=== PATIENT | female | born 1955 | race Caucasian/White ===

== ENCOUNTER 2017-09-15 05:34 | Emergency (ER) | payer BC, OTHER ==
[~2017-09-15] VITALS: Ht 165.1 cm; Wt 74.8 kg
[~2017-09-15 05:34] MED LIST: ALLEGRA ALLERG180 MG PO; ARMOUR THYROID60 MG PO; AZITHROMYCIN250 MG PO; BIOTIN1 MG PO; CALCIUM 600 +1 EAC4 PO; CYCLOBENZAPRINE10 MG PO; ESTRADIOL1 MG PO; GABAPENTIN300 MG PO; IBUPROFEN800 MG PO; LOVASTATIN40 MG PO; MEDROXYPROGESTE10 MG PO; NADOLOL40 MG PO; NAPROSYN500 MG PO; OMEPRAZOLE20 MG PO; OXYCODONE-ACET1 EAC1 PO; PREDNISONE20 MG PO; PSEUDOEPHEDRINE60 MG PO; SERTRALINE HCL100 MG PO; SUMATRIPTAN SUC50 MG PO; VITAMIN B-2100 MG PO; VITAMIN E1000 UNI1 PO
[2017-09-15] MEDS ORDERED: AUGMENTIN 875-1 EACH PO (06:07)
== END 2017-09-15 06:23 | disposition home or self-care (01) ==
LOC: ED 05:34
DX: J02.9 Acute pharyngitis, unspecified (principal); J01.00 Acute maxillary sinusitis, unspecified; K21.9 Gastro-esophageal reflux disease without esophagitis; F32.9 Major depressive disorder, single episode, unspecified; Z87.891 Personal history of nicotine dependence; Z90.49 Acquired absence of other specified parts of digestive tract; Z79.899 Other long term (current) drug therapy
CPT/HCPCS: 87081; 87880; 99283

== ENCOUNTER 2017-10-05 11:01 | Inpatient (IN) | payer BC ==
[~2017-10-05] VITALS: Ht 165.1 cm; Wt 71.5 kg
[~2017-10-05 11:01] MED LIST changes: +AUGMENTIN 875-1 EACH PO
--- NOTE | 2017-10-25 09:16 | NUR ---
10/25/17 0916 Niesha Wiggins TO PACU. ORAL AIRWAY IN PLACE.
--- NOTE | 2017-10-25 10:13 | NUR ---
PATIENT TX TO ROOM 116 FROM PACU. PATIENT IS ALERT AND ORIENTED AND STATES THAT PAIN AT THIS TIME IS AT A 6/10. PATIENT CAME TO MED SURG ON 2L OF OXYGEN PER NC. WATER PROVIDED FOR THE PATIENT AND SCD'S PLACED ON HER AT THIS TIME. GARRIDO INTACT WITH MINIMAL CLEAR YELLOW URINE PRESENT.
--- NOTE | 2017-10-25 10:41 | NUR ---
PATIENT C/O 6/10 ABDOMINAL PAIN, PATIENT GIVEN 4MG OF IV MORPHINE AT THIS TIME, LR HUNG PER THE IV POLE AT 125MLS /HR AT THIS TIME.
--- NOTE | 2017-10-25 11:14 | NUR ---
PAIN LEVEL DOWN TO A 3/10 AT THIS TIME, PATIENT SITTING UP IN BED VISITING WITH HER AT THIS TIME. DENIES ANY NAUSEA OR OTHER NEEDS AT THIS TIME
--- NOTE | 2017-10-25 12:24 | NUR ---
PATIENT TOLERATING CLEAR LIQUIDS WITH NO C/O NAUSEA OR VOMITING. PAIN IS STILL TOLERABLE AT THIS TIME.
--- NOTE | 2017-10-25 12:51 | NUR ---
PATIENT IS RESTING ON HER LEFT SIDE, PAIN LEVEL AT THIS TIME IS AT A 5/10, CRACKERS AND 1 PERCOCET PO GIVEN AT THIS TIME. PATIENT WATER FILLED UP FOR HER AT THIS TIME. FLU VACCINE FORM FILLED OUT FOR HER AT THIS TIME.
--- NOTE | 2017-10-25 12:52 | OR ---
[facility] [address] [place], [place] [address] Signed DATE OF OPERATION: 10/25/2017 SURGEON: López Vazquez MD PREOPERATIVE DIAGNOSIS: Uterovaginal prolapse complete. POSTOPERATIVE DIAGNOSIS: Uterovaginal prolapse complete. PROCEDURE: Vaginal hysterectomy with left salpingectomy, anterior and posterior repair. OYSTER GRADER: Vladimir Bullock. ANESTHESIA: General. ESTIMATED BLOOD LOSS: 75 mL. SPECIMEN: Uterus with cervix and left fallopian tube. DRAINS: Ruth to bladder. PACKING: Premarin soaked gauze in vagina. FINDINGS: Normal appearing cervix, small uterus with grade 3 prolapse. No adhesions or fibroids noted. There is a grade 2 rectocele with thinning rectovaginal septum midway up into the vagina, but good support of the perineum and good sphincter. This was grade 3 cystocele. With the urethra of the early well-supported and the left ovary was very small. Difficult to bring down into the operating field. Early well supported. The left tube is normal. There are no adhesions or masses. The right ovary was small and again difficult to visualize unable to bring down in the operating field. The right tube was also appeared normal but was again elevated and difficult to bring down into the field. Electronically Signed By: LÓPEZ VAZQUEZ MD 10/25/17 1252 PATIENT NAME: LEATHA VAZQUEZ OPERATIVE REPORT DATE OF : 53 PHYSICIAN: LÓPEZ VAZQUEZ MD REPORT #: [id number] REPORT IS CONFIDENTIAL AND NOT TO BE RELEASED WITHOUT AUTHORIZATION [facility] [address], [place] [address] Signed No pelvic masses were identified. DESCRIPTION OF PROCEDURE: The patient was brought in to the operating room, placed supine position. After adequate general anesthesia was obtained, placed in the dorsal lithotomy position, prepped and draped in usual sterile fashion. A weighted speculum was placed in the vagina and the cervix grasped with 2 single-tooth tenacula. A Ruth catheter was placed in the bladder. A posterior colpotomy was made with a curved scissors entering the posterior cul-de-sac. Finger palpation revealed no masses within the cul-de-sac. So a [place] speculum was replaced the weighted speculum. The scalpel was used to circumscribe the vaginal mucosa and close to the cervix and then the uterosacral ligaments on each side clamped with curved Stan clamps, cut with scissors and each side stick-tied with O Vicryl suture. The anterior vaginal mucosa was bluntly pushed back along the uterus until the anterior cul-de-sac peritoneum could be identified. This was then opened with scissors and finger palpation showed no masses within the anterior cul-de-sac. The Katie retractor was inserted into the anterior cul-de-sac to elevate the bladder out of the way. Curved Stan clamps were then used to clamp either side of the uterus and clamping the broad ligament and uterine vessels each side. The pedicle on each side was clamped with curved Stan clamp, cut with scissors and stick-tied with 0 Vicryl suture. The remaining upper pedicle incorporating the round ligament, the utero-ovarian ligament, and the fallopian tube were clamped with 2 curved Stan clamps on each side. This pedicle was cut on each side, removing the uterus and each pedicle was free tied, then stick-tied with O Vicryl suture. Both suture lines were carefully examined. There was a small amount of bleeding on the left side, which was controlled with figure-of-8 stitch of 0 Vicryl suture. The left fallopian tube was then carefully grasped with a Goldie clamp, pulled down gently, and curved Stan clamp placed across the fallopian tube. The tube was removed using scissors and the pedicle free tied with 0 Vicryl suture. This pedicle was observed and noted to have good hemostasis. On the right side, the tube was identified, gently grasped, but would not come down in the operating field. It was decided both upper pedicles appear normal, the tube unable to be brought down, would not be removed. Again, the sponge stick was placed in the opening. Both sides were carefully examined and noted to have good hemostasis throughout. A sponge stick was removed. Pursestring stitch of 2-0 Vicryl suture was used to close the anterior peritoneum between the upper pedicles and the posterior peritoneum between the lower pedicles. A finger was placed in the closure to make sure no bowel stuck within the closure and the peritoneum tied closed. Two upper pedicles were tied together for further support. The vaginal mucosa was then closed using running locking stitch of 0 Vicryl suture between the 2 lower uterosacral ligament pedicles. The vagina was inspected and good hemostasis noted. Cystocele was then identified. Allis clamp was placed on the bladder just below the urethrovesical junction and the 2nd one in the midline just above the previous hysterectomy incision. The mucosa was then injected along the midline with 1% lidocaine with epinephrine to help separate the vaginal mucosa Electronically Signed By: LÓPEZ VAZQUEZ MD 10/25/17 1252 PATIENT NAME: LEATHA VAZQUEZ OPERATIVE REPORT DATE OF : 53 PHYSICIAN: LÓPEZ VAZQUEZ MD REPORT #: [id number] REPORT IS CONFIDENTIAL AND NOT TO BE RELEASED WITHOUT AUTHORIZATION [facility] [address], [place] [address] Signed from the bladder and the scalpel used to make a vertical incision along the midline between the two. Allis clamps and Metzenbaum scissors were then used to separate the vaginal mucosa from the paravesical tissue. Blunt dissection was also used to separate the tissue. With the cystocele identified, pursestring stitch of 2-0 Vicryl. Suture was placed elevating the cystocele. After the 1st pursestring stitch the area was observed and noted to be too tight for 2nd pursestring stitch and good hemostasis was noted. So the vaginal mucosa was trimmed and a running stitch of 2-0 Vicryl used to close. After removing a small amount of vaginal mucosa on each side, the vaginal mucosa was closed using running stitch of 2-0 Vicryl suture. A digital rectal exam was then done while irrigating with a solution. The apex of the rectocele was identified and the mucosa over the top of the rectocele grasped with a curved Jose clamp. Two Allis clamps were used to grasp on either side of the perineal body at the posterior fourchette and a horizontal incision made between the 2 Allis clamps right at the opening. The scalp was then used to remove triangular piece of perineal skin with the apex being about a [address] down towards the rectum. This piece of perineal skin was removed using Metzenbaum scissors. Metzenbaum scissors were then used to undermine the posterior vaginal mucosa along the midline and opened the mucosa along the midline. Allis clamps were used to grasp the mucosa on either side. This was continued up to the previously placed clamp. The perirectal tissue was then bluntly and sharply from the posterior vaginal mucosa on either side. Horizontal mattress stitches of 0 Vicryl suture were then used to close the thinned out rectocele area. Digital rectal exam again was done with irrigation and no holes were noted in the rectum, no stitches were palpated and the rectovaginal thinning was much better supported. The vaginal mucosa was then trimmed and the posterior vaginal mucosa closed using running locking stitch of 2-0 Vicryl suture. The perineal body was closed with continuation of this stitch in a subcutaneous fashion in the perineal body and then the perineal skin closed with subcuticular stitch of 2-0 Vicryl suture. Good hemostasis was noted throughout. Premarin-soaked gauze was then placed in the vagina. Ruth left in place. The patient tolerated the procedure well, went to recovery room in good condition. The sponge, needle, instrument count correct at end of the procedure. The uterus with the left fallopian tube was sent to Pathology for identification. López Vazquez MD Electronically Signed By: LÓPEZ VAZQUEZ MD 10/25/17 1252 PATIENT NAME: LEATHA VAZQUEZ OPERATIVE REPORT DATE OF : 53 PHYSICIAN: LÓPEZ VAZQUEZ MD REPORT #: [id number] REPORT IS CONFIDENTIAL AND NOT TO BE RELEASED WITHOUT AUTHORIZATION [address] [address] Signed CHANG/LU /[id number] cc: TABITHA Ferguson Electronically Signed By: LÓPEZ VAZQUEZ MD 10/25/17 1252 PATIENT NAME: LEATHA VAZQUEZ OPERATIVE REPORT DATE OF : 53 PHYSICIAN: LÓPEZ VAZQUEZ MD REPORT #: [id number] REPORT IS CONFIDENTIAL AND NOT TO BE RELEASED WITHOUT AUTHORIZATION
--- NOTE | 2017-10-25 14:23 | NUR ---
PT IS RESTING IN BED SAFELY WITH CALL LIGHT IN REACH. PT DID NOT NEED ANYTHING AT THE MOMENT
--- NOTE | 2017-10-25 14:47 | NUR ---
PATIENT RESTING WITH EYES CLOSED, NO S/S OF DISTRESS AT THIS TIME. PATIENT HAS BEEN GIVEN EDUCATION REGARDING HYSTERECTOMY PRIOR TO FALLING ASLEEP.
[2017-10-25] MEDS ORDERED: NEURONTIN300 MG PO ×2 (15:09→15:11)
[2017-10-25] MEDS ORDERED: VOLTAREN100 GM TOP (15:34)
[2017-10-25] MEDS ORDERED: DICLOFENAC SOD100 MG PO (15:35)
[2017-10-25] MEDS ORDERED: PERCOCET 5-3251 EACH PO (15:40)
--- NOTE | 2017-10-25 16:06 | NUR ---
MED REC COMPLETE WITH [facility] REFILL HISTORY.
--- NOTE | 2017-10-25 17:44 | NUR ---
PATIENT IS NAUSEOUS, HAD A SMALL EMESIS, PATIENT GIVEN PHENERGAN AT THIS TIME. PATIENT ALSO C/O A PAYNE, MOTRIN GIVEN PO AT THIS TIME. PATIENT HAS A DINNER TRAY IN FRONT OF HER SHE HAS BARELY TOUCHED.
--- NOTE | 2017-10-25 18:20 | NUR ---
PT IS RESTING BED SAFELY WITH CALL LIGHT IN REACH. PT IS VERY DROWSY FROM MEDS, DID NOT WAKE TO ASK IF ANYTHING WAS NEEDED
--- NOTE | 2017-10-25 18:42 | NUR ---
PATIENT WAS ADMITTED TO THE FLOOR FROM SURGERY THIS AM. SHE HAS BEEN ALERT AND ORIENTED SINCE ARRIVAL TO THE FLOOR. PATIENT HAS C/O NAUSEA THIS AFTERNOON AND RECEIVED ZOFRAN AND PHENERGAN FOR NAUSEA COVERAGE. MOTRIN WAS GIVEN AT 1730 FOR C/O PAYNE AND THE PATIENT HAS SO FAR ONLY TOLERATED A CLEAR LIQUID DIET. SHE HAS A GARRIDO INTACT THAT NEEDS TO BE REMOVED IN THE AM WITH HER VAGINAL PACKING.
--- NOTE | 2017-10-25 19:05 | NUR ---
SHIFT REPORT RECIEVED. PATIENT RESTING IN BED, EYES CLOSED, RR 15. PULSE OX 100% ON 2L NC. TITRATED O2 DOWN TO 1L. PATIENT'S FAMILY AT BEDSIDE. NO QUESTIONS OR REQUEST AT THIS TIME.
--- NOTE | 2017-10-25 21:08 | NUR ---
medicated with one percocet, c/o h/a and generalized aches, 02/19. O2 in place, ivf infusing, scds inplace. at bedside. apple juice given on request. No other requests at this time. watching tv
--- NOTE | 2017-10-25 21:30 | NUR ---
PATIENT RESTING IN BED. GOING HOME FOR THE NIGHT. PATIENT IS AAOX3. LUNGS CLEAR. BOWEL SOUNDS HYPOACTIVE. ABD SOFT AND NONTENDER. PATIENT DENIES NAUSEA. PAIN IS 2/10. PULSE OX 100% ON 1L. TITRATED TO ROOM AIR. CMS INTACT. IV FLUIDS INFUSING. SCDS IN USE. CATH CARE PERFORMED. SMALL AMOUNT OF BLOOD NOTED BETWEEN LEGS. END OF VAGINAL PACKING VISIBLE AND IN PLACE. URINE IS CLEAR YELLOW. PATIENT HAS NO FURTHER REQUEST AT THIS TIME. CALL LIGHT IN REACH.
--- NOTE | 2017-10-25 23:50 | NUR ---
PATIENT RESTING IN BED. REPORTS THAT HER HEADACHE IS PERSISTENT BUT SHE HAS BEEN ABLE TO SLEEP A LITTLE BIT. DISCUSSED MEDICATION OPTIONS WITH PATIENT AND SHE DENIED NEED FOR PRN PAIN MEDS AT THIS TIME. GARRIDO IS DRAINING FREELY, IV SITE WNL. PULSE OX O2 SAT 98% ON RA. CALL LIGHT IN REACH.
--- NOTE | 2017-10-26 02:32 | NUR ---
PATIENT REQUESTING FOOD AND IS HUNGRY FOR BREAKFAST. PATIENT HAS HAD NO NAUSEA AND IS TOLERATING ORAL FLUIDS. PATIENT WAS ABLE TO EAT SOUP FOR DINNER WITHOUT NAUSEA. PATIENT PROVIDED SOME JELLO AND CRACKERS. WILL ADVANCE DIET TO REGULAR IF PATIENT TOLERATES WELL. WILL CONTINUE TO MONITOR.
--- NOTE | 2017-10-26 05:32 | NUR ---
PATIENT REPORTED 5/10 PAIN IN HER ABD, PRN PAIN MEDS PROVIDED. GARRIDO DC. VAGINAL PACKING REMOVED IN ONE PIECE. PATIENT TOLERATED WELL. ALYSSIA CARE PROVIDED. EXPLAINED POST RESIDUAL BLADDER SCANS TO PATIENT. WILL CONTINUE TO MONITOR.
--- NOTE | 2017-10-26 06:34 | NUR ---
PATIENT SLEPT WELL. PAIN CONTROLLED WITH PRN PAIN MEDS X2. RADHIKA CUEVA THIS MORNING. VAGINAL PACKING REMOVED. PATIENT TOLERATED WELL. PATIENT TOLERATING REGULAR DIET. NO NAUSEA THIS SHIFT. PATIENT SBA TO THE BATHROOM, APPEARS STEADY ON HER FEET. ORAL INTAKE WAS NOT VERY MUCH DURING THE NIGHT, IV FLUIDS INFUSING.
--- NOTE | 2017-10-26 07:44 | NUR ---
RECIEVED BEDSIDE REPORT FROM ALIRIO MACHADO. PT AWAKE AND ALERT IN BED. SPOUSE AT BEDSIDE. PT UP TO BATHROOM X2, VOIDING 250ML, 204ML PVR. DISCUSSED PLAN OF CARE. PT AGREES WITH PLAN. PAIN CONTROLED AT THIS TIME.
--- NOTE | 2017-10-26 10:06 | NUR ---
PT CALLS TO GET UP FOR THE BATHROOM/PVR Q HR. PVR IS DECREASING VOIDED AMT IS INCREASING. PT DENIES PAIN AT THIS TIME. ALL BELONGINGS ARE IN REACH.
--- NOTE | 2017-10-26 11:13 | NUR ---
PT UP WALKING IN HALLS WITH FAMILY. PT UP IN ROOM INDEPENDENTLY, CALLS APROPRIATELY FOR PVR. IV DC, PULSE OX DC. PT REPORTS MINIMAL PAIN. BELONGINGS IN REACH.
--- NOTE | 2017-10-26 11:54 | NUR ---
BLADDER SCANNED PATIENT. NOW IS SITTING UP IN BED EATING HER LUNCH.
--- NOTE | 2017-10-26 14:53 | NUR ---
REPLACED GARRIDO WITH LEG BAG. PROVIDED EDUCATION ON CATH CARE, CLEAN WITH WASHCLOTH AWAY FROM BODY. EDUCATED ON CHANGING BAGS IF NEEDED AND EMPTYING Q4 HOURS OR NEEDED. WILL SEND EXTRA BAGS HOME WITH PT. PT TOLERATED PROCEDURE WELL. PT VOIDED PRIOR TO INSERTING GARRIDO FOR 50ML. 400ML DRAINED INTO GARRIDO BAG.
[2017-10-26] MEDS ORDERED: IBUPROFEN800 MG PO (15:00)
[2017-10-26] MEDS ORDERED: PERCOCET 5-3251 EACH PO (15:01)
[2017-10-26] MEDS ORDERED: MACROBID 100 M100 MG PO (15:01)
--- NOTE | 2017-10-26 15:51 | NUR ---
PT DISCHARGED HOME WITH GARRIDO CATH PER MD. PT EDUCATED ON CATH CARE, EMPTING Q4 AND PRN, HOW TO CHANGE BAGS. PT VERBALIZED UNDERSTANDING OF PROCEDURE. PT HAS FOLLOW UP SCHEDULED FOR SUNDAY. DISCUSSED WHEN TO CALL THE DOCTOR AND SIDE EFFECTS OF MEDICATIONS.
== END 2017-10-26 15:45 | disposition home or self-care (01) | DRG 743 ==
LOC: MS 10-25 05:35 → DSVR 10-25 05:35 → MS 10-25 06:45
PROVIDERS: ADMIT General Practice
PROC: 0JQC0ZZ Repair Pelvic Region Subcutaneous Tissue and Fascia, Open Approach (ICD-10-PCS; 2017-10-25)
PROC: 0JQC0ZZ Repair Pelvic Region Subcutaneous Tissue and Fascia, Open Approach (ICD-10-PCS; 2017-10-25)
PROC: 0UT97ZZ Resection of Uterus, Via Natural or Artificial Opening (ICD-10-PCS; principal; 2017-10-25 06:45)
PROC: 0UT67ZZ Resection of Left Fallopian Tube, Via Natural or Artificial Opening (ICD-10-PCS; 2017-10-25 06:45)
DX: N81.3 Complete uterovaginal prolapse (principal); R33.9 Retention of urine, unspecified
CPT/HCPCS: 00944; 90674; 94762; C1762; G0008; J0330; J0690; J1100; J1644; J1885; J2250; J2270; J2274; J2405; J2550; J2704; J2710; J2765; J3010; J7120

== ENCOUNTER 2022-01-22 07:43 | Emergency (ER) | payer MEDICARE, BC ==
[~2022-01-22] VITALS: Ht 165.1 cm; Wt 68.0 kg
[~2022-01-22 07:43] MED LIST changes: +DICLOFENAC SOD100 MG PO; +KETOROLAC TROME10 MG PO; +MACROBID 100 M100 MG PO; +NEURONTIN300 MG PO; +OXYBUTYNIN CHLO10 MG PO; +PERCOCET 5-3251 EACH PO; +SERTRALINE HCL50 MG PO; +VOLTAREN100 GM TOP
--- OUTSIDE RECORDS SUMMARY | 2022-01-22 07:46 | XMS ---
PreManage Notification: LEATHA VAZQUEZ Security Insulator Tester Events No recent Security Events currently on file CRITERIA MET - PDMP - ED - Positive COVID-19 Lab Result - [facility] MEGAN ALBERT Physician Utility Service Worker Current PHONE: [phone] Me[facility] has no Care Guidelines for this patient. E.Zion VISIT COUNT (12 MO.) 1 YOANDY Burden TOTAL 1 NOTE: Visits indicate total known visits. ED/UCC VISIT TRACKING (12 MO.) 01/22/2022 07:45 YOANDY Melgar OR TYPE: Emergency COMPLAINT: - TOE INJURY INPATIENT VISIT TRACKING (12 MO.) No inpatient visits to display in this time frame [email or web address]
[2022-01-22] MEDS ORDERED: LISINOPRIL20 MG PO (07:54)
[2022-01-22] MEDS ORDERED: LOSARTAN POTASS50 MG PO (07:54)
[2022-01-22] MEDS ORDERED: SERTRALINE HCL100 MG PO (07:54)
[2022-01-22] MEDS ORDERED: LOSARTAN POTAS100 MG PO (07:54)
== END 2022-01-22 08:35 | disposition home or self-care (01) ==
LOC: ED 07:43
DX: S90.121A Contusion of right lesser toe(s) without damage to nail, initial encounter (principal); G43.909 Migraine, unspecified, not intractable, without status migrainosus; K21.9 Gastro-esophageal reflux disease without esophagitis; Z87.891 Personal history of nicotine dependence; Z79.899 Other long term (current) drug therapy; W22.8XXA Striking against or struck by other objects, initial encounter
CPT/HCPCS: 73630; 99283-25

== ENCOUNTER 2022-05-11 11:48 | Day surgery (SDC) | payer BC, MEDICARE ==
[~2022-05-11 11:48] MED LIST changes: +LISINOPRIL20 MG PO; +LOSARTAN POTAS100 MG PO; +LOSARTAN POTASS50 MG PO
[2022-05-11] MEDS ORDERED: LOSARTAN POTASS50 MG PO (12:23)
--- NOTE | 2022-05-12 14:40 | OR ---
[facility] [address], [place] [address] Signed DATE OF OPERATION: 05/11/2022 SURGEON: Shay Morales MD PREOPERATIVE DIAGNOSIS: Persistent constipation, episodic diarrhea. POSTOPERATIVE DIAGNOSES: 1. Diverticulosis sigmoid and left colon. 2. Extensively long colon challenging, otherwise normal. PROCEDURE: Total colonoscopy to cecum with multiple biopsies. ANESTHESIA: Intravenous sedation fentanyl 175 mcg and Versed 7 mg. INDICATION: This 67-year-old white woman is a patient of TABITHA Rush. She last underwent colonoscopy and upper endoscopy in 2014. She was found to have hyperplastic polyps of the rectosigmoid then. She does have symptoms of significant constipation, occasionally watery diarrhea. She feels a fullness and low-grade pain in the pelvis. She eats almonds on a routine basis to help improve her symptoms of constipation and does take Dulcolax suppository routinely. She has had no blood per rectum and has no family history of colon cancer. She is admitted at this time to undergo colonoscopy. Understands the risks of bleeding, infection, and perforation. Notably, she has other medical issues including "fibromyalgia" and daily use of Percocet for abdominal pain. FINDINGS: The prep was excellent. Complete colonoscopy was undertaken of the cecum that was extremely challenging. The colon seemed to be quite redundant and poorly fixed. Ultimately, the cecum was well visualized. Biopsies were taken of the cecum, hepatic flexure, sigmoid and rectum. There was no abnormality of cancer. No evidence of stricture or neoplasm. Only diverticulosis. DESCRIPTION OF PROCEDURE: The patient was brought to the endoscopy suite and placed in lateral decubitus position, given intravenous sedation to the point of slurred speech and nystagmus. Additional Electronically Signed By: SHAY MORALES MD 05/12/22 1440 PATIENT NAME: LEATHA VAZQUEZ OPERATIVE REPORT DATE OF : 53 REPORT #: [id number] PHYSICIAN: SHAY MORALES MD PCP: MEGAN ALBERT PA-C REPORT IS CONFIDENTIAL AND NOT TO BE RELEASED WITHOUT AUTHORIZATION [facility] [address], [place] [address] Signed sedation was given as needed. An Olympus video colonoscope was passed in the rectum after normal digital examination and scope manipulated throughout the colon. At about this mid transverse colon, passage was challenging on the basis of redundancy of the colon. Abdominal wall stabilization and other maneuvers were initiated to allow for passage of the scope. Beyond the hepatic flexure, it was particularly challenging, but with all due care it was accomplished after placing the patient in the supine position. Ultimately, good visualization of the cecum was noted. Notably, the prep was quite good. Biopsies were taken of the cecum. The scope was then withdrawn and examination undertaken. Biopsies then were taken of the hepatic flexure, though there was no specific abnormality. Further withdrawal confirmed numerous diverticula of the left colon and sigmoid. Sigmoid biopsy was obtained and ultimately rectal biopsy as well. The scope was removed and the patient was taken to the recovery room in good condition. CONCLUDING DIAGNOSIS: Constipation, probably functional and no doubt in part related to routine use of Percocet. I would recommend MiraLAX 1 cap full daily as well as Metamucil with additional fluids. She will return to the ongoing care of TABITHA Rush. MD YANN Mitchell/MODL /[id number] cc: TABITHA Rush Copies: ~ Electronically Signed By: SHAY MORALES MD 05/12/22 1440 PATIENT NAME: LEATHA VAZQUEZ OPERATIVE REPORT DATE OF : 53 REPORT #: [id number] PHYSICIAN: SHAY MORALES MD PCP: MEGAN ALBERT PA-C REPORT IS CONFIDENTIAL AND NOT TO BE RELEASED WITHOUT AUTHORIZATION
--- NOTE | 2022-05-12 17:33 | PATH ---
[facility] [address] [facility] [place], [place] [address] Signed SPECIMEN(S): A CECAL BIOPSY SPECIMEN(S): B HEPATIC FLEXURE BIOPSY SPECIMEN(S): C SIGMOID BIOPSY SPECIMEN(S): D RECTAL BIOPSY SPECIMEN SOURCE: A. CECAL BIOPSY B. HEPATIC FLEXURE BIOPSY C. SIGMOID BIOPSY D. RECTAL BIOPSY CLINICAL HISTORY: History of diarrhea. FINAL PATHOLOGIC DIAGNOSIS: A. Colon, cecum, biopsy: - Mucosal eosinophilia. B. Colon, hepatic flexure, biopsy: - No significant histopathology. C. Colon, sigmoid, biopsy: - No significant histopathology. D. Rectum, biopsy: - No significant histopathologic alterations. COMMENT: Regarding specimen A, sections through the specimen show a focal increase in the number of eosinophils in the lamina propria. Where they are most numerous they number up to 32 eosinophils/HPF. Increased eosinophils are seen in response to some infections, in patients with IBD and in patients with allergies or reactions to drugs, foods, supplements and environmental allergens. This change could be the result of stasis that commonly occurs in motility disorders. A certain percentage of patients with this finding will eventually be shown to develop Crohn's disease. Regarding specimens B and C, the sections from the specimens contain architecturally normal colonic mucosa without crypt distortion. There is no acute or chronic inflammation. There is no evidence of microscopic colitis. There are no abnormal organisms or infiltrates. There are no polyps or neoplasms. Regarding specimen D, the sections from the specimen are architecturally normal PATIENT NAME: LEATHA VAZQUEZ [facility] PATHOLOGY DATE OF : 53 REPORT #: [id number] PHYSICIAN: RACHEL BELLA PCP: MEGAN ALBERT PA-C REPORT IS CONFIDENTIAL AND NOT TO BE RELEASED WITHOUT AUTHORIZATION [facility] [address] [place], [place] [address] Signed without crypt distortion. There is no acute or chronic inflammation. There is no evidence of microscopic colitis. There are no abnormal organisms or infiltrates. There is no evidence of polyps or neoplasia. TWK:[facility]:C2NR MICROSCOPIC EXAMINATION: Histologic sections of all submitted blocks are examined by light microscopy. These findings, together with the gross examination, support the pathologic diagnosis. GROSS DESCRIPTION: Four specimens are received in four containers, labeled "BL." A. The specimen, labeled "BL, cecal," is received in formalin and consists of two turcios soft tissue fragments that measure 0.2 to 0.3 cm in greatest dimension. The specimen is entirely submitted in cassette (A1). B. The specimen, labeled "BL, hepatic flexure," is received in formalin and consists of two turcios soft tissue fragments that measure 0.2 to 0.3 cm in greatest dimension. The specimen is entirely submitted in cassette (B1). C. The specimen, labeled "BL, sigmoid," is received in formalin and consists of three turcios soft tissue fragments that measure 0.3 cm in greatest dimension. The specimen is entirely submitted in cassette (C1). D. The specimen, labeled "BL, rectum," is received in formalin and consists of two turcios soft tissue fragments that measure 0.1 to 0.2 cm in greatest dimension. The specimen is entirely submitted in cassette (D1). AT (under the direct supervision of a pathologist) The Gross Description was prepared using a voice recognition system. The report was reviewed for accuracy; however, sound-alike word errors, addition and/or deletions may occur. If there is any question about this report, please contact Client Services. PERFORMING LABORATORY: The technical component was performed by [facility], [address] [place] [address], [place] [address] (CLIA# [id number]). The professional interpretation was performed by [facility], [facility], [address] [place] [address] (CLIA#: [id number]). PATIENT NAME: LEATHA VAZQUEZ [facility] PATHOLOGY DATE OF : 53 REPORT #: [id number] PHYSICIAN: RACHEL BELLA PCP: MEGAN ALBERT PA-C REPORT IS CONFIDENTIAL AND NOT TO BE RELEASED WITHOUT AUTHORIZATION [facility] [address] [place], [place] [address] Signed Diagnostician: Miquel Etienne MD Pathologist Electronically Signed 05/12/2022 Copies: ~ PATIENT NAME: LEATHA VAZQUEZ [facility] PATHOLOGY DATE OF : 53 REPORT #: [id number] PHYSICIAN: RACHEL BELLA PCP: MEGAN ALBERT PA-C REPORT IS CONFIDENTIAL AND NOT TO BE RELEASED WITHOUT AUTHORIZATION
== END 2022-05-11 15:20 | disposition home or self-care (01) ==
LOC: OPS 11:48 → DS 11:51 → OPS 13:00
PROVIDERS: ATTEND Surgery
PROC: 0DBL8ZX Excision of Transverse Colon, Via Natural or Artificial Opening Endoscopic, Diagnostic (ICD-10-PCS; 2022-05-11)
PROC: 0DBP8ZX Excision of Rectum, Via Natural or Artificial Opening Endoscopic, Diagnostic (ICD-10-PCS; 2022-05-11)
PROC: 0DBH8ZX Excision of Cecum, Via Natural or Artificial Opening Endoscopic, Diagnostic (ICD-10-PCS; principal; 2022-05-11 13:00)
DX: D72.19 Other eosinophilia (principal); K57.30 Diverticulosis of large intestine without perforation or abscess without bleeding; M79.7 Fibromyalgia; I10 Essential (primary) hypertension; F17.200 Nicotine dependence, unspecified, uncomplicated; Z87.19 Personal history of other diseases of the digestive system; Z86.16 Personal history of COVID-19
CPT/HCPCS: 99153; G0500; J2250; J2405; J3010; J7121

== ENCOUNTER 2023-12-07 15:14 | Emergency (ER) | payer OTHER, BC, MEDICARE ==
[~2023-12-07] VITALS: Ht 165.1 cm; Wt 74.8 kg
[~2023-12-07 15:14] MED LIST changes: +ACETAMINOPHEN500 MG PO; +IBUPROFEN600 MG PO; +OXYCODON-ACETA1 EAC2 PO
--- OUTSIDE RECORDS SUMMARY | 2023-12-07 15:16 | XMS ---
PreManage Notification: LEATHA VAZQUEZ Security Program And Research Coordinator Events No recent Security Events currently on file [facility] There are no care providers on record at this time. [facility] has no Care Guidelines for this patient. Cristina VISIT COUNT (12 MO.) 1 YOANDY Burden TOTAL 1 NOTE: Visits indicate total known visits. ED/UCC VISIT TRACKING (12 MO.) 12/07/2023 15:15 YOANDY Melgar OR TYPE: Emergency COMPLAINT: - RIGHT ARM INJURY INPATIENT VISIT TRACKING (12 MO.) No inpatient visits to display in this time frame [email or web address]
[2023-12-07] MEDS ORDERED: AMLODIPINE BESYL5 MG PO (15:37)
[2023-12-07] MEDS ORDERED: LOVASTATIN20 MG PO (15:38)
[2023-12-07] MEDS ORDERED: OXYCODONE-ACET1 EAC1 PO (15:38)
[2023-12-07 16:53] VITALS: BP 142/87
== END 2023-12-07 16:55 | disposition home or self-care (01) ==
LOC: ED 15:14
DX: S43.401A Unspecified sprain of right shoulder joint, initial encounter (principal); K21.9 Gastro-esophageal reflux disease without esophagitis; G89.29 Other chronic pain; F32.A Depression, unspecified; I10 Essential (primary) hypertension; Z79.899 Other long term (current) drug therapy; W23.0XXA Caught, crushed, jammed, or pinched between moving objects, initial encounter; Y93.89 Activity, other specified; Y99.0 Civilian activity done for income or pay
CPT/HCPCS: 99283-25